=== PATIENT | female | born 1970 | race Caucasian/White ===

== ENCOUNTER 2022-07-25 06:56 | Day surgery (SDC) | payer OTHER ==
[2022-07-25] MEDS ORDERED: Ringers Lactate 1,000 ML IV ONE (07:28)
[2022-07-25] MEDS ORDERED: propofoL 200 MG/20 ML VIAL IV ONE (08:30)
[2022-07-25] MEDS ORDERED: LIDOCAINE 1% MPF 5 ML VIAL ONE (08:31)
--- NOTE | 2022-07-25 08:59 | ENDO RPT ---
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 ESTIMATED BLOOD LOSS: None CONSENT: The patient understands the risks and benefits of the procedure and understands that these risks include, but are not limited to: sedation, allergic reaction, infection, perforation and/or bleeding. Alternative means of evaluation and treatment include, among others: physical exam, x-rays, and/or surgical intervention. The patient elects to proceed with this endoscopic procedure. DESCRIPTION OF PROCEDURE: During intra-op preparation period all mechanical medical equipment was checked for proper function. Hand hygiene and appropriate measures for infection prevention was taken. Procedure, possible complications, alternatives including, but not limited to possibility of bleeding, perforation, tear, infection, sepsis, need for surgery, need for blood transfusion, were explained to the patient. After the risks, benefits and alternatives of the procedure were thoroughly explained, Informed consent was verified, confirmed and timeout was successfully executed by the treatment team. The patient was placed in the left lateral position. A digital rectal exam was performed and revealed internal hemorrhoids. After appropriate level of anesthesia, the scope was passed. The EC-[id number] ([id number]) endoscope was introduced through the anus and advanced to the cecum, which was identified by both the appendix and ileocecal valve. The quality of the prep was fair. The instrument was then slowly withdrawn as the colon was fully examined. Scope withdrawal time was 10 minutes. COLON FINDINGS: Small internal hemorrhoids were found. The colon mucosa was otherwise normal. Retroflexed views revealed no abnormalities. The scope was then completely withdrawn from the patient and the procedure terminated. ADVERSE EVENTS: There were no complications. IMPRESSIONS: 1. Small internal hemorrhoids 2. The colon mucosa was otherwise normal RECOMMENDATIONS: 1. fiber rich diet 2. follow-up: office 2 week(s) 3. Monitor for any evidence of rectal bleeding. 4. hemorrhoidal hygiene RECALL: Return in 10 year(s) for Colonoscopy. Cologuard in [address] eSigned: Tyson Gomez DR 07/25/2022 8:58 AM cc: CPT CODES: ICD9 CODES: PATIENT NAME: José Miguel DarbyCedrick MR#: [id number]
[2022-07-25 09:42] VITALS: TEMP 98; O2SAT 100
[2022-07-25 09:45] VITALS: BP 118/54
== END 2022-07-25 09:35 | disposition home or self-care (01) ==
LOC: OR 06:56
PROVIDERS: ATTEND Surgery
PROC: 0DJD8ZZ Inspection of Lower Intestinal Tract, Via Natural or Artificial Opening Endoscopic (ICD-10-PCS; principal; 2022-07-25 08:30)
DX: Z12.11 Encounter for screening for malignant neoplasm of colon (principal); K64.8 Other hemorrhoids
CPT/HCPCS: J2704; J2001; J7120; G0121

== ENCOUNTER 2024-05-13 17:09 | Emergency (ER) | payer OTHER ==
--- OUTSIDE RECORDS SUMMARY | 2024-05-13 17:14 | XMS REPORT | Continuity of Care Document ---
Author Name Unknown Address [address] [place] [address] [facility] thconnect Address [address] [place] [address] Care Team Providers Care Transitional Care Manager Name Role Phone Kyaw Vargas DO Primary Care Physician [phone] [email or web address] Attending Clinician CRISTELA Biggs Attending Clinician Unavailable Cristela Veloz MD Attending Clinician [phone] Team, [facility] Maintenance Attending Clinicia n Unavailable Doctor Unassigned, [place] Attending Clinician U navailable Pob, [facility] Attending Clinician RODRICK Medina Attending Clinician RODRICK Magallon Attending Clinician PAM Márquez Attending Clinician PAM Hernadez Attending Clinician Unavaila hoang Ajibade_O_AH Attending Clinician Unavailable Ige-Odunuga_J_AH Attending Clinician Unavailable [email or web address]_S Admitting Clinician Unavaila CRISTELA Aguilar Admitting Clinician Unavailable Cristela Veloz MD Admitting Clinician [phone] Ajibade_O_AH Admitting Clinician Unavailable Ige-Odunuga_J_AH Admitting Clinician Unavailable Payers Payer Name Policy Type Policy Number Effective Date Expirati on Date Source [place] [place]MIUM [place] [id number] 2021 00:00:00 [employer] [place]MEDICARE REPLACEMENT/ADV ANTAGE - HMO) [id number] 2525-02-01 00:00:00 [employer] C1 [id number] Common Spi [facility] Problems Condition Name Condition Details Condition Category Status Onset Date Resolution Date Last Treatment Date Treating Clinician Comments Source Status post hysterosco py Status post hysterosco py Disease Active 03-21 00:00: 00 [facility] Status post hysterosco pic polypectom y Status post hysterosco pic polypectom y Disease Active 03-21 00:00: 00 [facility] Presence of intrauteri ne contracept deedee device Presence of intrauteri ne contracept deedee device Disease Active 10-25 00:00: 00 [facility] Fibroids Fibroids Disease Active 10-25 00:00: 00 [facility] Excessive or frequent menstruati on Excessive or frequent menstruati on Disease Active 3- 00:00: 00 [facility] Generalize d anxiety disorder Generalize d Anxiety Disorder Problem Active 08-27 00:00: 00 [facility] Insomnia Insomnia Problem Active 08-27 00:00: 00 [facility] Iron deficiency anemia Iron Deficiency Anemia Problem Active 08-27 00:00: 00 [facility] Schizoaffe ctive disorder Schizoaffe ctive Disorder Problem Active 08-27 00:00: 00 [facility] Hyperchole sterolemia Hyperchole sterolemia Problem Active 2018-07 00:00: 00 [facility] Bipolar disorder Bipolar disorder Disease Active 11-13 00:00: 00 [facility] Hypothyroi d Hypothyroi d Disease Active 11-13 00:00: 00 [facility] Herpes, vulvar Herpes, vulvar Disease Active 11-13 00:00: 00 [facility] Other screening mammogram Other screening mammogram Disease Active 11-13 00:00: 00 [facility] Herpes labialis Herpes labialis Problem Active [facility] [id number] Schizoaffe ctive disorder, bipolar type Problem Active [facility] Hip joint pain Hip joint pain Problem Active [facility] [id number] PTSD (post-trau matic stress disorder) Problem Active [facility] [id number] Encounter for gynecologi mustapha examinatio n without abnormal finding Problem Active [facility] [id number] H/O bilateral breast implants Problem Active [facility] [id number] Severe mixed bipolar I disorder with psychotic features Problem Active [facility] [id number] HTN, goal below 140/90 Problem Active [facility] Allergic rhinitis Seasonal and perennial allergic rhinitis Problem Active [facility] [id number] Mixed hyperlipid emia Problem Active [facility] Knee pain Knee pain Problem Active [facility] History of augmentati on of breast H/O breast implant Problem Active [facility] Chronic kidney disease stage 3 Chronic kidney disease, stage 3 Problem Active [facility] Allergies, Adverse Reactions, Alerts Allergy Name Allergy Type Status Severity Reaction(s) Onset Date Inactive Date Treating Clinician Comments Source Penicill ins Propensi ty to adverse reaction s Active Unknown - See comments 08-19 00:00: 00 [facility] PENICILL INS Drug Class Active High Unknown-Cmnt 08-19 00:00: 00 [facility] Divalpro ex Sodium Drug Allergy Active Unknown - See comments 07-19 00:00: 00 [facility] Penicill amine Drug Allergy Active Unknown - See comments 07-19 00:00: 00 [facility] DIVALPRO EX SODIUM DRUG INGREDI Active Unknown-Cmnt 07-19 00:00: [address] [facility] PENICILL AMINE DRUG INGREDI Active Unknown-Cmnt 07-19 00:00: 00 [facility] Valproic Acid Propensi ty to adverse reaction s Active Other - See comments 01-12 00:00: [address] [facility] VALPROIC ACID DRUG INGREDI Active Other-Cmnt 01-12 00:00: 00 [facility] Penicill ins Propensi ty to adverse reaction s Active Anaphylaxis 11-13 00:00: 00 [facility] PENICILL INS Drug Class Active Anaphylaxis 11-13 00:00: 00 [facility] Depakote Allergy to substanc e Active Myalgias (muscle pain), Other [facility] PENICILL INS Allergy to substanc e Active Anaphylaxis [facility] NO KNOWN ALLERGIE S Drug Class Active [facility] Social History Social Habit Start Date Stop Date Quantity Comments Source History of tobacco use Cigarette Smoker [facility] Gender identity [facility] Alcohol intake 2023-04-05 00:00:00 2023-04-05 00:00:00 Current drinker of alcohol (finding) [facility] History of Social function 2023-03-21 00:00:00 2023-03-21 00:00:00 [facility] Exposure to SARS-CoV-2 (event) 2022-10-15 00:00:00 2022-10-25 10:27:00 Not sure [facility] Tobacco use and exposure 2022-08-19 00:00:00 2022-08-19 00:00:00 Smokeless tobacco non-user [facility] Alcohol Comment 2022-08-19 00:00:00 2022-08-19 00:00:00 once a month [facility] Sex Ass[birth year] At 1970 00:00:00 1970 00:00:00 [facility] Smoking Status Start Date Stop Date Source Ex-smoker 2022-08-19 00:00:00 2022-08-19 00:00:00 [facility] Medications Ordered Medication Name Filled Medication Name Start Date Stop Date Current Medication? Ordering Clinician Indication Dosage Frequency Signature (SIG) Comments Components Source BIOTIN ORAL 2022-07 0 14:03: 07 Yes 1{capsu le} Take 1 capsule by mouth. [facility] QUEtiapine 400 mg tablet 2022-07 0 14:03: 07 Yes 600mg Take 1.5 tablets by mouth in the morning and 1.5 tablets in the evening. [facility] glucosamine -chondroiti n 500-400 mg tablet 2022-07 0 14:03: 07 Yes 1{tbl} Take 1 tablet by mouth in the morning and 1 tablet in the evening. [facility] glucosamine carey 2KCl-chondr oit 500-400 mg Tab 2022-07 0 14:03: 07 Yes 1{tbl} Take 1 tablet by mouth in the morning and 1 tablet in the evening. [facility] psyllium husk, with sugar, (DAILY FIBER, PSYLLIUM-CAREY CROSE,) 3 gram/7 gram Powd 2022-07 0 14:03: 07 Yes Take by mouth. [facility] ferrous sulfate 300 mg (60 mg iron)/5 mL solution 2022-07 0 14:03: 07 Yes 1 tablet [facility] HYDROmorphO ne (DILAUDID) injection 0.2 mg 03-21 15:28: 22 Yes .2mg 0.2 mg, Slow IV Push, Q5MIN PRN, 10 doses, Starting on Mon03/21/23 at 1028, Until Discontinu ed, Routine, Pain (scale 7-10), PACU
Us e approved by (Faculty): PACU USE -ANESTHESI A SERVICE-HY DROMORPHON E INJECTIONS [facility] FENTanyl PF (SUBLIMAZE (PF)) injection 25 mcg 03-21 15:28: 22 Yes 25ug 25 mcg, Slow IV Push, Q5MIN PRN, 4 doses, Starting on Mon03/21/23 at 1028, Until Discontinu ed, Routine, Pain (scale 4-6), PACU [facility] ondansetron (ZOFRAN (PF)) injection 4 mg 03-21 15:28: 22 Yes 4mg 4 mg, Slow IV Push, PRN, 1 dose, Starting on Mon03/21/23 at 1028, Until Discontinu ed, Routine, Nausea and Vomiting (N/V), PACU [facility] silver nitrate applicator 03-21 15:07: 00 03-21 15:25 :45 No PRN, Starting on Mon03/21/23 at 1007, Until Mon03/21/23 at 1025, Routine, Intra-op [facility] sodium chloride 0.9 % irrigation solution 03-21 14:48: 00 03-21 15:25 :45 No PRN, Starting on Mon03/21/23 at 0948, Until Mon03/21/23 at 1025, Intra-op [facility] ferric subsulfate (MONSEL'S) solution 03-21 14:48: 00 03-21 15:25 :45 No PRN, Starting on Mon03/21/23 at 0948, Until Mon03/21/23 at 1025, Routine, Intra-op [facility] lactated ringers IV infusion 1,000 mL 03-21 13:30: 00 03-21 13:34 :00 No 1000mL at 42 mL/hr, 1,000 mL, IV Infusion, ONCE, 1 dose, On Mon03/21/23 at 0830, Routine, DSU Pre-op [facility] lithium carbonate (LITHONATE) 300 mg capsule 03-21 12:18: 18 Yes 300mg Take 1 capsule by mouth 4 (four) times daily. [facility] ziprasidone (GEODON) 60 mg capsule 03-21 12:18: 18 Yes 60mg Take 1 capsule by mouth in the morning. [facility] BIOTIN ORAL 03-21 12:18: 18 Yes 1{capsu le} Take 1 capsule by mouth. [facility] QUEtiapine 400 mg tablet 03-21 12:18: 18 Yes 600mg Take 1.5 tablets by mouth in the morning and 1.5 tablets in the evening. [facility] glucosamine -chondroiti n 500-400 mg tablet 03-21 12:18: 18 Yes 1{tbl} Take 1 tablet by mouth in the morning and 1 tablet in the evening. [facility] glucosamine carey 2KCl-chondr oit 500-400 mg Tab 03-21 12:18: 18 Yes 1{tbl} Take 1 tablet by mouth in the morning and 1 tablet in the evening. [facility] amLODIPine 2.5 mg tablet 03-21 12:18: 18 Yes 1 tablet [facility] psyllium husk, with sugar, (DAILY FIBER, PSYLLIUM-CAREY CROSE,) 3 gram/7 gram Powd 03-21 12:18: 18 Yes Take by mouth. [facility] ferrous sulfate 300 mg (60 mg iron)/5 mL solution 03-21 12:18: 18 Yes 1 tablet [facility] ibuprofen 600 mg tablet 03-21 00:00: 00 Yes [id number] 600mg Take 1 tablet by mouth every 6 (six) hours as needed for Pain (scale 1-3) or Pain (scale 4-6). [facility] acetaminoph en (TYLENOL) 325 mg tablet 03-21 00:00: 00 Yes [id number] 650mg Take 2 tablets by mouth every 6 (six) hours as needed for Pain (scale 1-3) or Pain (scale 4-6). [facility] HYDROcodone -acetaminop hen 5-325 mg tablet 03-21 00:00: 00 03-23 04:59 :00 No [id number] 1{tbl} Take 1 tablet by mouth every 6 (six) hours as needed for Pain (scale 7-10) for up to 1 day. Indication s: acute pain [facility] lithium carbonate (LITHONATE) 300 mg capsule 03-14 11:06: 58 Yes 300mg Take 1 capsule by mouth 4 (four) times daily. [facility] ziprasidone (GEODON) 60 mg capsule 03-14 11:06: 58 Yes 60mg Take 1 capsule by mouth in the morning. [facility] BIOTIN ORAL 03-14 11:06: 58 Yes 1{capsu le} Take 1 capsule by mouth. [facility] QUEtiapine 400 mg tablet 03-14 11:06: 58 Yes 600mg Take 1.5 tablets by mouth in the morning and 1.5 tablets in the evening. [facility] glucosamine -chondroiti n 500-400 mg tablet 03-14 11:06: 58 Yes 1{tbl} Take 1 tablet by mouth in the morning and 1 tablet in the evening. [facility] glucosamine carey 2KCl-chondr oit 500-400 mg Tab 03-14 11:06: 58 Yes 1{tbl} Take 1 tablet by mouth in the morning and 1 tablet in the evening. [facility] psyllium husk, with sugar, (DAILY FIBER, PSYLLIUM-CAREY CROSE,) 3 gram/7 gram Powd 03-14 11:06: 58 Yes Take by mouth. [facility] ferrous sulfate 300 mg (60 mg iron)/5 mL solution 03-14 11:06: 58 Yes 1 tablet [facility] amLODIPine 2.5 mg tablet 03-10 12:23: 29 Yes 1 tablet [facility] ziprasidone (GEODON) 60 mg capsule 03-08 14:05: 45 Yes 60mg Take 1 capsule by mouth in the morning. [facility] levonorgest reL (MIRENA) IUD 1 Device 01-26 17:00: 00 01-26 16:04 :00 No [id number] 1{devic e} [facility] QUEtiapine 400 mg tablet 01-26 10:28: 12 Yes [facility] levothyroxi ne 125 mcg tablet 10-25 18:11: 26 10-25 00:00 :00 No 125ug Take 1 tablet by mouth every morning. [facility] QUEtiapine (SEROQUEL) 300 mg tablet 10-25 18:11: 17 10-25 00:00 :00 No 300mg Take 1 tablet by mouth at bedtime. [facility] psyllium seed, with sugar, (FIBER ORAL) 10-25 18:11: 11 10-25 00:00 :00 No Take by mouth. [facility] OXcarbazepi ne 300 mg tablet 10-25 18:11: 01 10-25 00:00 :00 No Take by mouth. [facility] MULTIVITAMI N ORAL 10-25 18:10: 58 10-25 00:00 :00 No Take by mouth. [facility] lithium carbonate (LITHONATE) 300 mg capsule 10-25 11:04: 37 Yes 300mg Take 1 capsule by mouth 4 (four) times daily. [facility] QUEtiapine 200 mg tablet 10-25 11:04: 37 Yes [facility] amLODIPine 2.5 mg tablet 10-25 11:04: 37 Yes 1 tablet [facility] BIOTIN ORAL 10-21 13:22: 24 Yes 1{capsu le} Take 1 capsule by mouth. [facility] glucosamine -chondroiti n 500-400 mg tablet 10-21 13:22: 24 Yes 1{tbl} Take 1 tablet by mouth in the morning and 1 tablet in the evening. [facility] glucosamine carey 2KCl-chondr oit 500-400 mg Tab 10-21 13:22: 24 Yes 1{tbl} Take 1 tablet by mouth in the morning and 1 tablet in the evening. [facility] psyllium husk, with sugar, (DAILY FIBER, PSYLLIUM-CAREY CROSE,) 3 gram/7 gram Powd 10-21 13:22: 24 Yes Take by mouth. [facility] ferrous sulfate 300 mg (60 mg iron)/5 mL solution 10-21 13:22: 24 Yes 1 tablet [facility] psyllium husk, with sugar, (DAILY FIBER, PSYLLIUM-CAREY CROSE,) 3 gram/7 gram Powd 10-21 13:22: 24 Yes Take by mouth. [facility] QUEtiapine 200 mg tablet 10-21 13:22: 24 Yes [facility] OXcarbazepi ne 300 mg tablet 10-21 13:22: 24 Yes Take by mouth. [facility] amLODIPine 2.5 mg tablet 10-21 13:22: 24 Yes 1 tablet [facility] amLODIPine 2.5 mg tablet 09-30 14:02: 13 Yes 1 tablet [facility] QUEtiapine 200 mg tablet 09-30 14:02: 06 Yes [facility] psyllium seed, with sugar, (FIBER ORAL) 09-30 14:02: 06 Yes Take by mouth. [facility] OXcarbazepi ne 300 mg tablet 09-30 14:02: 06 Yes Take by mouth. [facility] glucosamine carey 2KCl-chondr oit 500-400 mg Tab 09-30 14:02: 06 Yes 1{tbl} Take 1 tablet by mouth in the morning and 1 tablet in the evening. [facility] psyllium husk, with sugar, (DAILY FIBER, PSYLLIUM-CAREY CROSE,) 3 gram/7 gram Powd 09-30 14:02: 06 Yes Take by mouth. [facility] ferrous sulfate 300 mg (60 mg iron)/5 mL solution 09-30 14:02: 06 Yes 1 tablet [facility] levonorgest reL (MIRENA) IUD 1 Device 09-23 21:30: 00 09-22 20:48 :00 No [id number] 1{devic e} [facility] OXcarbazepi ne 600 mg tablet 2-24 00:00: 00 Yes 600mg Take 1 tablet by mouth at bedtime. [facility] BIOTIN ORAL 17 12:04: 31 Yes 1{capsu le} Take 1 capsule by mouth. [facility] QUEtiapine 200 mg tablet 08-19 12:04: 31 Yes [facility] glucosamine -chondroiti n 500-400 mg tablet 17 12:04: 31 Yes 1{tbl} Take 1 tablet by mouth in the morning and 1 tablet in the evening. [facility] OXcarbazepi ne 300 mg tablet 08-19 12:04: 31 Yes Take by mouth. [facility] miSOPROStoL 200 mcg tablet 17 00:00: 00 10-25 00:00 :00 No [id number] 200ug Take 1 tablet by mouth SEE-INSTRU CTIONS. Take one tab the night before and one tab the morning of procedure [facility] QUEtiapine 300 mg tablet 2-11 00:00: 00 10-25 00:00 :00 No 300mg Take 1 tablet by mouth at bedtime. [facility] levothyroxi ne 150 mcg tablet 1-12 00:00: 00 Yes 150ug Take 1 tablet by mouth. [facility] rosuvastati n 10 mg tablet 7-20 00:00: 00 Yes 10mg Take 1 tablet by mouth. [facility] ziprasidone (GEODON) 60 mg capsule 11-13 11:30: 49 Yes 60mg Take 60 mg by mouth daily. [facility] QUEtiapine (SEROQUEL) 300 mg tablet 11-13 11:30: 48 Yes 300mg Take 300 mg by mouth at bedtime. [facility] lithium carbonate (LITHONATE) 300 mg capsule 11-13 11:30: 48 Yes 300mg Take 300 mg by mouth 4 (four) times daily. [facility] levothyroxi ne (SYNTHROID) 125 mcg tablet 11-13 11:30: 48 Yes 125ug Take 125 mcg by mouth every morning. [facility] Crestor 10 mg tablet Take 1 tablet every day by oral route. Crestor 10 mg tablet Take 1 tablet every day by oral route. No 1 Q1D Crestor 10 mg tablet Take 1 tablet every day by oral route. [facility] ferrous sulfate 325 mg (65 mg iron) tablet Take 1 tablet every day by oral route. ferrous sulfate 325 mg (65 mg iron) tablet Take 1 tablet every day by oral route. No 1 Q1D ferrous sulfate 325 mg (65 mg iron) tablet Take 1 tablet every day by oral route. [facility] levothyroxi ne 137 mcg capsule Take 1 capsule every day by oral route. levothyroxi ne 137 mcg capsule Take 1 capsule every day by oral route. No 1capsul e(s) Q1D levothyrox ine 137 mcg capsule Take 1 capsule every day by oral route. [facility] Seroquel 200 mg tablet Take 1 tablet every day by oral route. Seroquel 200 mg tablet Take 1 tablet every day by oral route. No 1 Q1D Seroquel 200 mg tablet Take 1 tablet every day by oral route. [facility] Trileptal 300 mg tablet Take 1 tablet twice a day by oral route. Trileptal 300 mg tablet Take 1 tablet twice a day by oral route. No 1 BID Trileptal 300 mg tablet Take 1 tablet twice a day by oral route. [facility] Amlodipine Besylate Amlodipine Besylate Yes Sameer Abdi take 1 tablet by mouth once daily [facility] Crestor Crestor Yes Sameer Abdi 1 tablet [facility] Seroquel Seroquel Yes Sameer Abdi 1 tablet [facility] Quetiapine Fumarate Quetiapine Fumarate Yes Sameer Abdi TAKE 1 TABLET BY MOUTH AT BEDTIME [facility] Oxcarbazepi ne Oxcarbazepi ne Yes Sameer Abdi TAKE 1 TABLET BY MOUTH TWICE DAILY [facility] Valtrex Valtrex Yes Sameer Abdi 1 tablet [facility] Synthroid Synthroid Yes Sameer Abdi 1 tablet on an empty stomach in the morning [facility] Lamictal Lamictal Yes Sameer Abdi not defined [facility] Crestor 10 MG Crestor 10 MG No 1{table t} QD Crestor 10 MG [facility] Crestor 10 Crestor 10 No 1{ table t} QD Crestor 10 [facility] Valtrex 1 GM Valtrex 1 GM No 1{table t} BID Valtrex 1 GM [facility] Levothyroxi ne Sodium 137 MCG Levothyroxi ne Sodium 137 MCG No Levothyrox ine Sodium 137 MCG [facility] Seroquel 200 MG Seroquel 200 MG No 1{table t} QD Seroquel 200 MG [facility] Synthroid 137 MCG Synthroid 137 MCG No QD Synthroid 137 MCG [facility] Lamictal 200 MG Lamictal 200 MG No Lamictal 200 MG [facility] Immunizations Ordered Immunization Name Filled Immunization Name Date Status Comments Source Rubella 2008-08-08 00:00:00 Completed [facility] Rubella 2008-08-08 00:00:00 Completed [facility] Rubella 2008-08-08 00:00:00 Completed [facility] Rubella 2008-08-08 00:00:00 Completed [facility] Rubella 2008-08-08 00:00:00 Completed [facility] Rubella 2008-08-08 00:00:00 Completed [facility] Rubella 2008-08-08 00:00:00 Completed [facility] Rubella 2008-08-08 00:00:00 Completed [facility] TD, NOS 2006-07-03 00:00:00 Completed [facility] TD, NOS 2006-07-03 00:00:00 Completed [facility] TD, NOS 2006-07-03 00:00:00 Completed [facility] TD, NOS 2006-07-03 00:00:00 Completed [facility] TD, NOS 2006-07-03 00:00:00 Completed [facility] TD, NOS 2006-07-03 00:00:00 Completed [facility] TD, NOS 2006-07-03 00:00:00 Completed [facility] TD, NOS 2006-07-03 00:00:00 Completed [facility] Rubella Unknown Completed [facility] TD, NOS Unknown Completed [facility] Rubella Unknown Completed [facility] TD, NOS Unknown Completed [facility] Rubella Unknown Completed [facility] TD, NOS Unknown Completed [facility] Rubella Unknown Completed [facility] TD, NOS Unknown Completed [facility] Rubella Unknown Completed [facility] TD, NOS Unknown Completed [facility] Vital Signs Vital Name Observation Time Observation Value Comments S ource Systolic blood pressure 2023-04-05 19:01:00 124 mm[Hg] [facility] Diastolic blood pressure 2023-04-05 19:01:00 77 mm[Hg] [facility] Heart rate 2023-04-05 19:01:00 73 /min [facility] Body temperature 2023-04-05 19:01:00 36.44 Angela [facility] Body weight 2023-04-05 19:01:00 89.449 kg [facility] BMI 2023-04-05 19:01:00 28.30 kg/m2 [facility] Systolic blood pressure 2023-03-21 15:57:00 104 mm[Hg] [facility] Diastolic blood pressure 2023-03-21 15:57:00 65 mm[Hg] [facility] Respiratory rate 2023-03-21 15:57:00 12 /min [facility] Oxygen saturation in Arterial blood by Pulse oximetry 2023-03-21 15:57:00 97 /min [facility] Heart rate 2023-03-21 15:51:00 74 /min [facility] Body temperature 2023-03-21 15:23:00 36.39 Angela [facility] Body height 2023-03-21 13:30:00 177.8 cm [facility] Body weight 2023-03-21 13:30:00 86.183 kg [facility] BMI 2023-03-21 13:30:00 27.26 kg/m2 [facility] Systolic blood pressure 2023-03-21 15:57:00 104 mm[Hg] [facility] Diastolic blood pressure 2023-03-21 15:57:00 65 mm[Hg] [facility] Respiratory rate 2023-03-21 15:57:00 12 /min [facility] Oxygen saturation in Arterial blood by Pulse oximetry 2023-03-21 15:57:00 97 /min [facility] Heart rate 2023-03-21 15:51:00 74 /min [facility] Body temperature 2023-03-21 15:23:00 36.39 Angela [facility] Body height 2023-03-21 13:30:00 177.8 cm [facility] Body weight 2023-03-21 13:30:00 86.183 kg [facility] BMI 2023-03-21 13:30:00 27.26 kg/m2 [facility] Systolic blood pressure 2023-03-08 19:05:00 117 mm[Hg] [facility] Diastolic blood pressure 2023-03-08 19:05:00 74 mm[Hg] [facility] Heart rate 2023-03-08 19:04:00 70 /min [facility] Body temperature 2023-03-08 19:04:00 36.72 Angela [facility] Body height 2023-03-08 19:04:[address] [facility] Body weight 2023-03-08 19:04:[address] [facility] BMI 2023-03-08 19:04:00 27.69 kg/m2 [facility] Systolic blood pressure 2023-01-26 15:24:00 111 mm[Hg] [facility] Diastolic blood pressure 2023-01-26 15:24:00 72 mm[Hg] [facility] Heart rate 2023-01-26 15:24:00 69 /min [facility] Body temperature 2023-01-26 15:24:00 36.61 Angela [facility] Respiratory rate 2023-01-26 15:24:00 18 /min [facility] Body height 2023-01-26 15:24:[address] [facility] Body weight 2023-01-26 15:24:[address] [facility] BMI 2023-01-26 15:24:00 28.15 kg/m2 [facility] Oxygen saturation in Arterial blood by Pulse oximetry 2023-01-26 15:24:00 98 /min [facility] Heart rate 2022-10-25 16:03:00 57 /min [facility] Body temperature 2022-10-25 16:03:00 36.83 Angela [facility] Body height 2022-10-25 16:03:[address] [facility] Body weight 2022-10-25 16:03:00 90.719 kg [facility] BMI 2022-10-25 16:03:00 28.70 kg/m2 [facility] Systolic blood pressure 2022-10-25 16:03:00 111 mm[Hg] [facility] Diastolic blood pressure 2022-10-25 16:03:00 70 mm[Hg] [facility] Systolic blood pressure 2022-09-30 19:02:00 121 mm[Hg] [facility] Diastolic blood pressure 2022-09-30 19:02:00 79 mm[Hg] [facility] Heart rate 2022-09-30 19:02:00 60 /min [facility] Respiratory rate 2022-09-30 19:02:00 16 /min [facility] Body height 2022-09-30 19:02:[address] [facility] Body weight 2022-09-30 19:02:00 90.311 kg [facility] BMI 2022-09-30 19:02:00 28.57 kg/m2 [facility] Oxygen saturation in Arterial blood by Pulse oximetry 2022-09-30 19:02:00 98 /min [facility] Body temperature 2022-09-22 14:44:00 37.06 Angela [facility] Body height 2022-09-22 14:44:00 177.8 cm [facility] Body weight 2022-09-22 14:44:00 91.264 kg [facility] BMI 2022-09-22 14:44:00 28.87 kg/m2 [facility] Systolic blood pressure 2022-09-22 14:44:00 121 mm[Hg] [facility] Diastolic blood pressure 2022-09-22 14:44:00 75 mm[Hg] [facility] Heart rate 2022-09-22 14:44:00 70 /min [facility] Systolic blood pressure 2022-08-19 17:31:00 125 mm[Hg] [facility] Diastolic blood pressure 2022-08-19 17:31:00 84 mm[Hg] [facility] Heart rate 2022-08-19 17:31:00 67 /min [facility] Body temperature 2022-08-19 17:31:00 37.06 Angela [facility] Body height 2022-08-19 17:31:00 177.8 cm [facility] Body weight 2022-08-19 17:31:00 92.761 kg [facility] BMI 2022-08-19 17:31:00 29.34 kg/m2 [facility] BP Diastolic 2020-08-27 00:00:00 80 mm[Hg] Rl [facility] Practice Height 2020-08-27 00:00:00 70 [in_i] Willson ge [facility] Practice BMI (Body Mass Index) 2020-08-27 00:00:00 28.7 kg/m2 [facility] BP Systolic 2020-08-27 00:00:00 120 mm[Hg] [facility] Body Weight 2020-08-27 00:00:00 200 [lb_av] Rl radha [facility] Procedures Procedure Date / Time Performed Performing Clinician Source HYSTEROS[facility] 2023-03-21 14:11[facility] 2023-03-21 14:11:00 Crist[facility] DAY SURGERY - ADC 2023-03-21 05:01:00 Doctor Yolanda ssigned, [place] [facility] BASIC METABOLIC PANEL (NA, K, CL, CO2, GLUCOSE, BUN, CREATININE, CA) 2023-03-20 14:43:00 Cristela Veloz [facility] TOTAL BETA HCG ASSAY 2023-03-20 14:43:00 Cristela Veloz [facility] CBC WITH DIFF 2023-03-20 14:43:00 Cristela Veloz [facility] GLYCOSYLATED HEMOGLOBIN (A1C) 2023-03-20 14:43[facility]00 [facility] 2023-03-20 14:43:00 Cristela Veloz [facility] DSU PRE-OP 2023-03-13 05:01:00 Doctor Unass igned, [place] [facility] DSU PRE-OP 2023-03-13 05:01:00 Doctor Unass igned, [place] [facility] DISCLOSURE AND CONSENT MEDICAL & SURGICAL PROCEDURES - FEMALM 2023-01-26 05:01:00 Doctor Unassigned, [place] [facility] POCT TEST 2023-01-26 00:00:00 Rodrick Marin [facility] GC & CHLAMYDIA AMPLIFIED ASSAY 2022-09-22 15:20:00 [facility] TRICHOMONAS AMPLIFIED ASSAY 2022-09-22 15:20:00 Cristela Veloz [facility] ANIMAL THERAPIST CLINIC ULTRASOUND 2022-09-22 05:01:00 Doctor Unassigned, [place] [facility] POCT TEST 2022-09-22 00:00:00 Cristela Veloz [facility] POCT TEST 2022-08-19 00:00:00 Cristela Veloz [facility] Screening Mammography [facility]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
--- NOTE | 2024-05-13 18:11 | EDPHYS ---
Physician Documentation [facility] Name: José Miguel Darby Age: 53 yrs Sex: Female : 1970 Arrival Date: 05/13/2024 Time: 17:09 Bed DX3 Private MD: ED Physician Gulshan Gan HPI: 05/13 18:07 This 53 yrs old Female presents to ER via Ambulatory with complaints of Psych Problem - sb4 manic episode. 18:07 The patient presents to the emergency department with paranoia. Onset: The sb4 symptoms/episode began/occurred yesterday. Past psychiatric history: Prior diagnosis: bipolar disorder, schizophrenia, Psychiatric medications include: Seroquel and oxcarbazepine. Associated signs and symptoms: Pertinent negatives: hallucinations, homicidal ideation, substance abuse, suicide ideation. The patient has experienced similar episodes in the past, several times. The patient has been recently seen by a physician: a psychiatrist, with similar presenting complaints, and was sent to the [facility] Emergency Department for further evaluation. 18:10 Patient states that she is at the beginning stages of a manic episode. She reports mild sb4 hallucinations, paranoia, and insomnia. States that she is just trying to get help as soon as possible because it tends to get worse quickly and she will wander and get herself into trouble. Denies any suicidal or homicidal ideations. Is currently on medications including Seroquel and oxcarbazepine. States that she spoke with her psychiatrist earlier today and was told to come to the ED to be transferred for an inpatient psychiatric treatment. Historical: - Allergies: 17:55 PENICILLINS; ss - PMHx: 17:55 Bipolar disorder; Schizophrenia; multiple personality disorder; Insomnia (multiple ss personality disorder); Hypothyroidism; - PSHx: 17:55 None; ss - Immunization history:: Client reports receiving the 2nd dose of the Covid vaccine. - Infectious Disease History:: Denies. - Social history:: Smoking status: Patient denies any tobacco usage or history of. ROS: 18:08 Constitutional: Negative for fever, chills, and weight loss, sb4 18:08 Psych: Positive for insomnia, paranoia, 18:08 All other systems are negative, Exam: 18:09 Constitutional: This is a well developed, well nourished patient who is awake, alert, sb4 and in no acute distress. Head/Face: Normocephalic, atraumatic. Eyes: Extra-ocular motions intact. Periorbital areas with no swelling, redness, or edema. ENT: Mucous membranes moist. 18:09 Psych: Behavior/mood is pleasant, cooperative, Affect is calm, Oriented to person, place, time, Patient has no thoughts/intents to harm self or others. Judgement / Insight is normal. Delusions/hallucinations are not present. Vital Signs: 17:55 BP 137 / 89; Pulse 73; Resp 16; Temp 97.8(O); Pulse Ox 99% on R/A; Weight 89.36 kg; ss Height 5 ft. 10 in. ; Pain 0/10; 17:55 Body Mass Index 28.27 (89.36 kg, 177.8 cm) ss 17:55 Pain Scale: Adult ss MDM: 17:53 Medical Screening Exam initiated sb4 18:09 Data reviewed: vital signs, nurses notes. Counseling: I had a detailed discussion with sb4 the patient and/or guardian regarding the historical points, exam findings, and any diagnostic results supporting the discharge/admit diagnosis, the need to transfer to another facility, [facility] does not immediately have the required specialist. 18:35 ED course: Contacted [facility]ry [facility], staff was unable or sb4 unwilling to tell me which inpatient psychiatric facility they see patients at. Will transfer patient to first available facility. 19:31 ED course: spoke with RN from [facility], accepts patient. sb4 Administered Medications: No medications were administered Disposition Summary: 05/13/24 18:10 Transfer Ordered Notes: Transfer Location: Psych Facility sb4 Reason: Higher level of care sb4 Condition: Fair sb4 Problem: an acute exacerbation sb4 Symptoms: are unchanged sb4 Accepting Physician: psychiatrist(05/13/24 20:24) vc1 Diagnosis - Bipolar disorder, current episode manic without psychotic features, moderate sb4 Forms: - Medication Reconciliation Form sb4 - SBAR form sb4 Signatures: Mary Hitchcock RN RN ss Bailee Alcantar RN RN vc1 Nichol Benavides PA-C PAInocencio sb4 Corrections: (The following items were deleted from the chart) 20:24 18:10 psychiatrist sb4 vc1
--- NOTE | 2024-05-13 18:11 | ER ---
Nurse's Notes [facility] Name: José Miguel Darby Age: 53 yrs Sex: Female : 1970 Arrival Date: 05/13/2024 Time: 17:09 Bed DX3 Private MD: Diagnosis: Bipolar disorder, current episode manic without psychotic features, moderate Presentation: 05/13 17:58 Chief complaint: Patient states: "rapid thinking and hallucinations that began today. I ss just want to seek help sooner than later. I tend to wander when I have a manic episode." Denies SI/ HI. Coronavirus screen: Client denies travel out of the [place] in the last 14 days. Ebola Screen: Patient denies exposure to infectious person. Patient denies travel to an Ebola-affected area in the 21 days before illness onset. Initial Sepsis Screen: Does the patient meet any 2 criteria? No. Patient's initial sepsis screen is negative. Does the patient have a suspected source of infection? No. Patient's initial sepsis screen is negative. Risk Assessment: Do you want to hurt yourself or someone else? Patient reports no desire to harm self or others. Onset of symptoms was May 13, 2024. 17:58 Method Of Arrival: Ambulatory ss 17:58 Acuity: BILL 3 ss Triage Assessment: 19:17 General: Appears in no apparent distress. well groomed, well developed, Behavior is vc1 calm, cooperative, restless. Pain: Denies pain. EENT: No deficits noted. No signs and/or symptoms were reported regarding the EENT system. Neuro: Level of Consciousness is awake, alert, obeys commands, Oriented to person, place, time, situation, Appropriate for age. Cardiovascular: Heart tones S1 S2 present Capillary refill < 3 seconds Patient's skin is warm and dry. Respiratory: Airway is patent Respiratory effort is even, unlabored, Respiratory pattern is regular, symmetrical, Breath sounds are clear bilaterally. GI: No deficits noted. No signs and/or symptoms were reported involving the gastrointestinal system. : No deficits noted. No signs and/or symptoms were reported regarding the genitourinary system. Derm: Skin is intact, is healthy with good turgor, Skin is dry. Musculoskeletal: Circulation, motion, and sensation intact. Range of motion: intact in all extremities. Historical: - Allergies: 17:55 PENICILLINS; ss - PMHx: 17:55 Bipolar disorder; Schizophrenia; multiple personality disorder; Insomnia (multiple ss personality disorder); Hypothyroidism; - PSHx: 17:55 None; ss - Immunization history:: Client reports receiving the 2nd dose of the Covid vaccine. - Infectious Disease History:: Denies. - Social history:: Smoking status: Patient denies any tobacco usage or history of. Screenin:17 [facility] ED Fall Risk Assessment (Adult) History of falling in the last 3 months, vc1 including since admission No falls in past 3 months (0 pts) Confusion or Disorientation No (0 pts) Intoxicated or Sedated No (0 pts) Impaired Gait No (0 pts) Mobility Assist Device Used No (0 pt) Altered Elimination No (0 pt) Score/Fall Risk Level 0 - 2 = Low Risk Oriented to surroundings, Maintained a safe environment, Educated pt \\T\\ family on fall prevention, incl call for assistance when getting out of bed. Abuse screen: Denies threats or abuse. Nutritional screening: No deficits noted. Tuberculosis screening: No symptoms or risk factors identified. Assessment: 19:30 General: See triage assessment. vc1 Psych: 19:17 [place] Suicide Severity Screening: In the past month, have you wished you were vc1 or wished you could go to sleep and not wake up? Patient responds "No." "In the past month, have you actually had any thoughts of killing yourself?" Patient responds "no." "In your lifetime, have you ever done anything, started to do anything, or prepared to do anything to end your life?" Patient responds "no.". Subjective: Patient's mood is elevated, Delusions are denied, Hallucinations are denied Having thoughts of no SI or HI thoughts. 19:17 Objective: Patient is cooperative, Speech is normal, Affect is appropriate. vc1 Interventions: Pt seen in diagnostic chair. Safety Checks: Pt seen in diagnostic chair. Pt denies substance abuse. Commitment: Patient will be an involuntary commitment. Pt not SI or HI. Vital Signs: 17:55 BP 137 / 89; Pulse 73; Resp 16; Temp 97.8(O); Pulse Ox 99% on R/A; Weight 89.36 kg; ss Height 5 ft. 10 in. ; Pain 0/10; 17:55 Body Mass Index 28.27 (89.36 kg, 177.8 cm) ss 17:55 Pain Scale: Adult ss ED Course: 17:11 Patient arrived in ED. im 17:24 Nichol Benavides PA-C is PHCP. sb4 17:24 Gulshan Gan MD is Attending Physician. sb4 17:55 Arm band placed on right wrist. ss 18:06 Triage completed. ss 19:12 Faxed pt clinicals to the following facilities for placement; [facility], [address] 19:17 Patient has correct armband on for positive identification. seen in diagnostic chair. vc1 19:17 Provided Education on: safety. vc1 20:25 No provider procedures requiring assistance completed. Patient did not have IV access vc1 during this emergency room visit. Administered Medications: No medications were administered Medication: 20:24 VIS not applicable for this client. vc1 Outcome: 18:10 ER care complete, transfer ordered by . sb4 20:20 Instructed on the need for transfer, vc1 20:24 Patient left the ED. vc1 20:24 Transferred by ground EMS to other acute care facility: [facility]. vc1 20:24 Condition: good Signatures: Mary Hitchcock, RN RN Bailee Alcantar RN RN vc1 Nichol Benavides PA-C PA-C 4 Coleen Lau [facility] Jessica Rai im
[2024-05-13 20:29] VITALS: BP 137/89; TEMP 97.8; O2SAT 99
== END 2024-05-13 20:24 ==
LOC: ER 17:09
DX: F31.12 Bipolar disorder, current episode manic without psychotic features, moderate (principal)
CPT/HCPCS: 99285